=== PATIENT | male | born 1980 | race Caucasian/White ===

== ENCOUNTER 2020-10-31 15:57 | Emergency (ER) | payer MEDICAID ==
[~2020-10-31] VITALS: Ht 182.9 cm; Wt 84.8 kg
--- NOTE | 2020-10-31 16:15 | NUR ---
PT WAS TRIAGED AND PLACED IN ER LOBBY. THERE ARE NO ER BEDS AVAILABLE AT THIS TIME.
[2020-10-31] MEDS ORDERED: NEOMY/BACITRA/POLYMYXIN B OINT UD PACKET TP ONE ×2 (17:14→17:15)
[2020-10-31] MEDS ORDERED: LIDOCAINE HCL 2% 20 ML VIAL TP ONE (17:15)
[2020-10-31 17:28] VITALS: BP 109/82
--- NOTE | 2020-10-31 17:28 | NUR ---
Patient discharged to home in stable condition. Written and verbal after care instructions given. Patient verbalizes understanding of instructions. Stressed follow up or return to ER for worsening s/s.
== END 2020-10-31 17:29 | disposition home or self-care (01) ==
LOC: ER 15:57
DX: S61.511A Laceration without foreign body of right wrist, initial encounter (principal); W25.XXXA Contact with sharp glass, initial encounter; Y92.89 Other specified places as the place of occurrence of the external cause
CPT/HCPCS: A4663; J3490